=== PATIENT | female | born 1970 | race African-American/Black ===

== ENCOUNTER 2021-08-23 21:45 | Emergency (ER) | payer OTHER ==
[~2021-08-23] VITALS: Ht 154.9 cm; Wt 91.0 kg
[~2021-08-23 21:45] MED LIST: ALBU6.7H IH; CALC-451 PO
[2021-08-23] MEDS ORDERED: IBUP-2070 PO (21:50)
[2021-08-23] MEDS ORDERED: ACET-3385 PO (21:50)
[2021-08-23 23:19] VITALS: BP 149/97
[2021-08-24] MEDS ORDERED: KETOROLAC TROMETHAMINE 30 MG/ML VIAL IM ONE (00:30)
[2021-08-24] MEDS ORDERED: CYCLOBENZAPRINE HCL 10 MG TABLET PO ONE (00:30)
[2021-08-24 01:01] LABS: APPEARANCE,URINE CLOUDY (CLEAR); BILIRUBIN,URINE NEGATIVE (NEGATIVE); GLUCOSE, URINE (UA) NEGATIVE (NEGATIVE); KETONES,URINE NEGATIVE (NEGATIVE); LEUKOCYTE ESTERASE ,URINE MODERATE (NEGATIVE); NITRATE,URINE NEGATIVE (NEGATIVE); OCCULT BLOOD,URINE MODERATE (NEGATIVE); PH,URINE 5.5 (5.0-8.0); PROTEIN,URINE NEGATIVE (NEGATIVE)
[2021-08-24 01:15] LABS: BACTERIA,URINE Moderate /HPF (None Seen)
== END 2021-08-24 00:49 | disposition home or self-care (01) ==
LOC: EMS 21:47
DX: M54.17 Radiculopathy, lumbosacral region (principal); K21.9 Gastro-esophageal reflux disease without esophagitis; J45.909 Unspecified asthma, uncomplicated; Q24.9 Congenital malformation of heart, unspecified
CPT/HCPCS: 81001; 87086; 96372; 99283; J1885